=== PATIENT | male | born 1985 | race Caucasian/White ===

== ENCOUNTER 2017-09-28 18:49 | Emergency (ER) | payer OTHER ==
[~2017-09-28 18:49] MED LIST: AMOX-362 PO; BUTA1CAP4 PO; CARB100C2 PO; CLON-303; CYCL10TA29 PO; ESOM40CA42 PO; HYDR-4309 PO; IBUP200C71 PO; KET10 PO; LEXAPRO; LISI20TA29 PO; LOR5/325 PO; LORA-1456 PO; METH-543 PO; ONDA8TAB94 PO; PROM-110 PO; SUCR1TAB85 PO; VARE1TAB; VARE1TAB4 PO
--- NOTE | 2017-09-28 19:17 | ER Report ---
History and Physical Time Seen By MD: 18:51 HPI/ROS CHIEF COMPLAINT: Difficulty urinating HISTORY OF PRESENT ILLNESS: 32 y/o male; who presents emergency department with approximately 24 hours worth of some difficulty with urination and feeling of hesitancy and burning immediately after urination to the tip of the penis. Patient mixed to having sexual intercourse with his significant other approximately 48 hours ago. Solomon was anal intercourse. Denies any blood in his urine denies any penile discharge denies any testicular pain. Does admit to some lower abdominal discomfort. Denies fevers or chills. Patient last urinated approximately 90 minutes ago. Reports that this was essentially normal. REVIEW OF SYSTEMS: Respiratory: No cough, no dyspnea. Cardiovascular: No chest pain, no palpitations. Gastrointestinal: No vomiting, no abdominal pain. : dysuria Musculoskeletal: Chronic back pain. Allergies: Coded Allergies: diphenhydramine HCl (Verified Allergy, Unknown, 09/19/16) Home Meds Active Scripts Phenazopyridine Hcl (PHENAZOPYRIDINE HCL) 200 Mg Tablet, 200 MG PO TID, #6 TAB 0 Refills Prov:KYLEIGH ANG MD 09/28/17 Lorazepam (ATIVAN) 1 Mg Tablet, 1 MG PO Q12H Y for ANXIETY/AGITATION, #10 TAB Prov:GRETA CAST PA-C 12/03/16 Discontinued Scripts Ketorolac Tromethamine (KETOROLAC TROMETHAMINE) 10 Mg Tab, 10 MG PO Q6H, #20 TAB Prov:PRIYA FU 09/28/16 Promethazine Hcl (PROMETHAZINE HCL) 25 Mg Tablet, 25 MG PO Q8H Y for NAUSEA/ VOMITING, #12 TAB Prov:PRIYA FU 09/28/16 Amoxicillin (AMOXICILLIN) 500 Mg Capsule, 1 CAP PO TID for infection, #30 CAPSULE Prov:KAILA SIFUENTES DO 09/19/16 Past Medical/Surgical History Past medical history significant for panic disorder and anxiety treated with benzodiazepines Hx Smoking: Yes (1 PPD) Smoking Status: Current: Every Day Smoker Exposure to Second Hand Smoke?: Yes Hx Substance Use Disorder: Yes Hx Alcohol Use: Yes (OCC) Constitutional Vital Sign - Last 24 Hours 09/28/17 09/28/17 09/28/17 09/28/17 18:53 18:54 18:59 19:04 Temp 98.0 Pulse 81 83 86 Resp 20 B/P (MAP) 153/90 (111) 153/90 Pulse Ox 96 96 96 O2 Delivery Room Air 09/28/17 09/28/17 09/28/17 09/28/17 19:09 19:19 19:28 19:29 Pulse 82 151 83 B/P (MAP) 139/89 (106) Pulse Ox 97 94 100 09/28/17 09/28/17 09/28/17 09/28/17 19:30 19:34 19:39 19:44 Pulse 80 83 B/P (MAP) 133/88 (103) Pulse Ox 96 97 94 09/28/17 09/28/17 19:49 19:54 Pulse 80 Pulse Ox 93 93 Physical Exam General/Constitutional: Patient is awake, alert, nontoxic and in no acute respiratory distress. Head: Normocephalic and atraumatic. Eyes: Conjunctival clear, Sclera are clear and anicteric. Cardiovascular: Heart is regular rate and rhythm without audible murmurs, rubs or gallops. Pulmonary: Lungs are clear to auscultation bilaterally. There are no wheezes, rales, or rhonchi. Chest rise is symmetrical Abdomen: Soft, nontender, no guarding or peritoneal signs. Extremities: No gross deformities, Neuro: Alert and oriented X3,Patient has normal gait. Skin: No rashes, skin is warm dry and well perfused. Medical Decision Making Data Points Laboratory Hematology Test 09/28/17 19:26 Urine Color Yellow Urine Clarity Clear Urine pH 6.0 pH (4.8-9.5) Urine Specific [place] 1.013 Urine Protein Negative mg/dL (NEGATIVE) Urine Glucose (UA) Negative mg/dL (NEGATIVE) Urine Ketones Negative mg/dL (NEGATIVE) Urine Blood Negative (NEGATIVE) Urine Nitrite Negative (NEGATIVE) Urine Bilirubin Negative (NEGATIVE) Urine Urobilinogen Negative mg/dL (0.2-1.9) Urine Leukocyte Esterase Negative (NEGATIVE) Urine RBC <1 /HPF (0-2/HPF) Urine WBC <1 /HPF (0-5/HPF) Urine Squamous Epithelial Cells None /LPF (</=FEW) Urine Bacteria Negative /HPF (NONE-FEW) Urine Mucus None /HPF (NONE-FEW) Chemistry Test 09/28/17 19:26 Urine Color Yellow Urine Clarity Clear Urine pH 6.0 pH (4.8-9.5) Urine Specific [place] 1.013 Urine Protein Negative mg/dL (NEGATIVE) Urine Glucose (UA) Negative mg/dL (NEGATIVE) Urine Ketones Negative mg/dL (NEGATIVE) Urine Blood Negative (NEGATIVE) Urine Nitrite Negative (NEGATIVE) Urine Bilirubin Negative (NEGATIVE) Urine Urobilinogen Negative mg/dL (0.2-1.9) Urine Leukocyte Esterase Negative (NEGATIVE) Urine RBC <1 /HPF (0-2/HPF) Urine WBC <1 /HPF (0-5/HPF) Urine Squamous Epithelial Cells None /LPF (</=FEW) Urine Bacteria Negative /HPF (NONE-FEW) Urine Mucus None /HPF (NONE-FEW) Urinalysis Test 09/28/17 19:26 Urine Color Yellow Urine Clarity Clear Urine pH 6.0 pH (4.8-9.5) Urine Specific [place] 1.013 Urine Protein Negative mg/dL (NEGATIVE) Urine Glucose (UA) Negative mg/dL (NEGATIVE) Urine Ketones Negative mg/dL (NEGATIVE) Urine Blood Negative (NEGATIVE) Urine Nitrite Negative (NEGATIVE) Urine Bilirubin Negative (NEGATIVE) Urine Urobilinogen Negative mg/dL (0.2-1.9) Urine Leukocyte Esterase Negative (NEGATIVE) Urine RBC <1 /HPF (0-2/HPF) Urine WBC <1 /HPF (0-5/HPF) Urine Squamous Epithelial Cells None /LPF (</=FEW) Urine Bacteria Negative /HPF (NONE-FEW) Urine Mucus None /HPF (NONE-FEW) ED Course/Re-evaluation ED Course After history and physical exam was performed differential diagnosis was formulated which includes but is not limited to STD, urinary tract infection, urethritis, adverse medication reaction. Plan at this time will be to obtain urinalysis for culture and sensitivity will also perform on microscopic evaluation of urine we'll also perform a GC chlamydia screen. 09/28/2017 7:50:57 pm Urinalysis is completely normal. No evidence of leuk esterase no evidence of nitrites no evidence of blood microscopic did not reveal any white cells red cells or bacteria. Plan at this time will be to prescribe short course of Pyridium we will follow up on both a GC and chlamydia cultures with the patient when they return in 24-48 hours. Decision to Disposition Date: Sep 28, 2017 Decision to Disposition Time: 19:51 Depart Departure Latest Vital Signs Vital Signs Date Time Temp Pulse Resp B/P (MAP) Pulse Ox O2 Delivery O2 Flow Rate FiO2 09/28/17 19:54 80 93 09/28/17 19:30 133/88 (103) 09/28/17 18:54 98.0 20 Room Air Impression: Primary Impression: Dysuria Condition: Condition Unchanged Disposition: HOME OR SELF-CARE Referrals: BERNARDA BRANCH DO (PCP) 2 Days If symptoms worsen or persist New Scripts Phenazopyridine Hcl (PHENAZOPYRIDINE HCL) 200 Mg Tablet 200 MG PO TID, #6 TAB 0 Refills Prov: KYLEIGH ANG MD 09/28/17 Patient Instructions: Dysuria (ED) KYLEIGH ANG MD Sep 28, 2017 19:17
[2017-09-28 19:30] VITALS: BP 133/88
[2017-09-28] MEDS ORDERED: PHENAZOPYRIDINE 200 MG TAB TH 2 TAB/BOTTLE PO ONE (19:50)
[2017-09-28] MEDS ORDERED: PHEN200T32 PO (19:52)
== END 2017-09-28 20:07 | disposition home or self-care (01) ==
LOC: ER 19:31
DX: R30.0 Dysuria (principal)
CPT/HCPCS: 81001; 87088; 87491; 87591; 99283

== ENCOUNTER 2018-09-22 08:16 | Emergency (ER) | payer OTHER ==
[~2018-09-22 08:16] MED LIST changes: -CARB100C2 PO; +CARB100C4 PO; -HYDR-4309 PO; +HYDR-653 PO; +IBUP-136 PO; -IBUP200C71 PO; +PHEN200T32 PO
[2018-09-22] MEDS ORDERED: DEXAMETHASONE 4 MG TAB PO ONE (09:00)
[2018-09-22] MEDS ORDERED: IBUPROFEN 600 MG TAB PO ONE (09:00)
--- NOTE | 2018-09-22 09:22 | ER Report ---
History and Physical Time Seen By MD: 08:30 Hx. of Stated Complaint: SORE THROAT FOR 18 HRS. HPI/ROS CHIEF COMPLAINT: Sore throat HISTORY OF PRESENT ILLNESS: Pt has throat pain, painful swallowing, right slightly greater than left, moderate, x 18 hours. No fevers, cough, abd pain, vomiting. Has young children who have had uri symtpoms. Has had sinus congestion x > 1 mo REVIEW OF SYSTEMS: Respiratory: No cough, no dyspnea. Cardiovascular: No chest pain, no palpitations. Gastrointestinal: No vomiting, no abdominal pain. Musculoskeletal: No back pain. Remainder of the 14 system rev: Yes Allergies: Coded Allergies: diphenhydramine HCl (Verified Allergy, Unknown, 09/22/18) Home Meds Active Scripts Lorazepam (ATIVAN) 1 Mg Tablet, 1 MG PO Q12H PRN for ANXIETY/AGITATION, #10 TAB Prov:GRETA CAST PA-C 12/03/16 Discontinued Scripts Phenazopyridine Hcl (PHENAZOPYRIDINE HCL) 200 Mg Tablet, 200 MG PO TID, #6 TAB 0 Refills Prov:KYLEIGH ANG MD 09/28/17 Reviewed Nurses Notes: Yes Hx Smoking: Yes (1 PPD) Smoking Status: Current: Every Day Smoker Exposure to Second Hand Smoke?: Yes Hx Substance Use Disorder: Yes Hx Alcohol Use: Yes (OCC) Constitutional Vital Sign - Last 24 Hours 09/22/18 09/22/18 08:19 09:39 Temp 98.5 Pulse 85 72 Resp 20 20 B/P (MAP) 142/85 135/82 (99) Pulse Ox 94 94 O2 Delivery Room Air Room Air Physical Exam General Appearance: The patient is alert, has no immediate need for airway protection and no current signs of toxicity. [ ] Eyes: Pupils equal and round no injection. OP- slight tonsilar enlargement, erythema. OP erythema. No exudates. No bell captain. Uvula midline AC lad R > L none > 1 cm Respiratory: Chest is non tender, lungs are clear to auscultation. Cardiac: rrr no m/r/g Gastrointestinal: Musculoskeletal: Extremities have full range of motion and are non tender. Skin: No rashes or lesions. DIFFERENTIAL DIAGNOSIS: After history and physical exam differential diagnosis was considered for [employer] SU[employer]OR, strep pharyngitis, lemierre's, viral pharyngitis, or other emergent etiology of symptoms. Medical Decision Making Data Points Laboratory Hematology Test 09/22/18 08:24 Group A Streptococcus (PCR) Negative (NEGATIVE) Chemistry Test 09/22/18 08:24 Group A Streptococcus (PCR) Negative (NEGATIVE) ED Course/Re-evaluation ED Course Pt presents with pharyngitis without e/o strep or [employer] SU[employer]OR. Supportive tx given and discussed. Pt understands need for f/u and SRP's. Decision to Disposition Date: Sep 22, 2018 Decision to Disposition Time: 09:19 Depart Departure Latest Vital Signs Vital Signs Date Time Temp Pulse Resp B/P (MAP) Pulse Ox O2 Delivery O2 Flow Rate FiO2 09/22/18 09:39 72 20 135/82 (99) 94 Room Air 09/22/18 08:19 98.5 Impression: Primary Impression: Acute pharyngitis Condition: Improved Disposition: HOME OR SELF-CARE Departure Forms: Medications Reconciliation, Patient Portal Information, ER Transition Record Patient Instructions: Pharyngitis (ED) Additional Instructions: Your strep screen was negative. We will run a culture and let you know if that returns positive. I recommend he take ibuprofen 600 mg every 8 hours as well as Tylenol 650 mg every 4-6 hours while you're having pain. Please return if you are having increased swelling, increased pain, difficulty swallowing, change in voice, concerning neck pain, or any other concerns. As we discussed, giving your persistent elevated blood pressure, I recommend your primary physician highly consider placing you on blood pressure medications and following you closely. I also recommend you find out what your cholesterol testing has showed and determine if you need to be on cholesterol medications. You can do this by getting access to your [place] health record by siging up and checking on [email or web address] Problem Qualifiers Primary Impression: Acute pharyngitis Pharyngitis/tonsillitis etiology: unspecified etiology Qualified Codes: J02.9 - Acute pharyngitis, unspecified KYLEIGH PEREZ MD Sep 22, 2018 09:22
[2018-09-22 09:39] VITALS: BP 135/82
== END 2018-09-22 09:40 | disposition home or self-care (01) ==
LOC: ER 08:44
DX: J02.9 Acute pharyngitis, unspecified (principal)
CPT/HCPCS: 87653; 99283; J8540